=== PATIENT | female | born 1965 | race African-American/Black ===

== ENCOUNTER 2017-07-31 21:04 | Emergency (ER) | payer MEDICAID, OTHER ==
[~2017-07-31] VITALS: Ht 165.1 cm; Wt 65.0 kg
[~2017-07-31 21:04] MED LIST: ALBU18HF2 IH; FAMO40OR2 PO; MOME13HF2 INH
[2017-08-01 01:08] LABS: CLARITY URINE CLOUDY (CLEAR); COLOR URINE YELLOW (YELLOW); KETONES URINE TRACE (NEGATIVE); LEUKOCYTE ESTERASE URINE NEGATIVE (NEGATIVE); NITRITE URINE NEGATIVE (NEGATIVE); OCCULT BLOOD URINE NEGATIVE (NEGATIVE); PROTEIN URINE 1+ (NEGATIVE)
[2017-08-01] MEDS ORDERED: ACETAMINOPHEN 325MG TABLET PO ONE (01:15)
[2017-08-01 01:31] LABS: EOSINOPHILS % 4.8 % (0.0-5.0); HEMATOCRIT. 37.2 % (36.0-48.0); HEMOGLOBIN. 12.4 g/dL (12.0-16.0); LYMPHOCYTES % 47.4 % (20.0-50.0); MEAN CORPUSCULAR HEMOGLOBIN 28.1 pg (28.0-32.0); MEAN CORPUSCULAR VOLUME 84.6 fL (81.0-99.0); MEAN PLATELET VOLUME 8.6 fl (7.4-10.4); NEUTROPHILS % 37.8 % (40.0-76.0); PLATELET 243 x1000/uL (130-400); RED CELL DISTRIBUTION WIDTH 13.4 % (11.6-14.6)
[2017-08-01 01:37] LABS: CHLORIDE 109 mEq/L (98-107)
[2017-08-01 02:57] VITALS: BP 138/77
== END 2017-08-01 05:04 | disposition home or self-care (01) ==
LOC: ER 22:17
DX: R30.0 Dysuria (principal); R35.0 Frequency of micturition; R10.2 Pelvic and perineal pain; I11.0 Hypertensive heart disease with heart failure; I50.9 Heart failure, unspecified; J45.909 Unspecified asthma, uncomplicated; Z90.710 Acquired absence of both cervix and uterus
CPT/HCPCS: 36415; 76830; 76856; 80048; 81003; 81025; 83690; 85025; 87210; 99285; Z7610

== ENCOUNTER 2017-10-05 18:33 | Emergency (ER) | payer SELFPAY ==
[~2017-10-05] VITALS: Ht 167.6 cm; Wt 67.0 kg
[2017-10-05 22:02] LABS: BASOPHILS % 0.6 % (0.0-2.0); EOSINOPHILS % 0.1 % (0.0-5.0); HEMATOCRIT. 39.4 % (36.0-48.0); HEMOGLOBIN. 13.4 g/dL (12.0-16.0); LYMPHOCYTES % 12.7 % (20.0-50.0); MONOCYTES % 0.8 % (2.0-8.0); NEUTROPHILS % 85.8 % (40.0-76.0); PLATELET 291 x1000/uL (130-400); RED BLOOD CELL COUNT 4.64 mill/uL (4.2-5.4); RED CELL DISTRIBUTION WIDTH 13.3 % (11.6-14.6)
[2017-10-05 22:06] LABS: CHLORIDE 107 mEq/L (98-107)
[2017-10-05 22:07] LABS: PROTHROMBIN TIME 10.7 sec (9.4-11.6)
[2017-10-06 06:15] VITALS: BP 125/85
== END 2017-10-06 06:35 | disposition home or self-care (01) ==
LOC: ER 21:13
DX: I11.0 Hypertensive heart disease with heart failure (principal); I50.9 Heart failure, unspecified; R20.2 Paresthesia of skin; J45.909 Unspecified asthma, uncomplicated; Z90.710 Acquired absence of both cervix and uterus
CPT/HCPCS: 36415; 70450; 80053; 85025; 85610; 93005; 99285

== ENCOUNTER 2018-10-05 21:46 | Emergency (ER) | payer MEDICAID, OTHER ==
[~2018-10-05] VITALS: Ht 167.6 cm; Wt 68.0 kg
[2018-10-05] MEDS: KETOROLAC 30MG/ML VIAL IV STA (23:24)
[2018-10-05 23:33] LABS: EOSINOPHILS % 11.7 % (0.0-5.0); HEMATOCRIT. 36.4 % (36.0-48.0); HEMOGLOBIN. 12.5 g/dL (12.0-16.0); LYMPHOCYTES % 47.2 % (20.0-50.0); MEAN CORPUSCULAR HEMOGLOBIN 29.8 pg (28.0-32.0); MEAN CORPUSCULAR VOLUME 87.1 fL (81.0-99.0); MEAN PLATELET VOLUME 8.9 fl (7.4-10.4); MONOCYTES % 6.9 % (2.0-8.0); NEUTROPHILS % 33.2 % (40.0-76.0); PLATELET 268 x1000/uL (130-400); RED BLOOD CELL COUNT 4.18 mill/uL (4.2-5.4); RED CELL DISTRIBUTION WIDTH 13.7 % (11.6-14.6)
[2018-10-06 00:07] LABS: CHLORIDE 108 mEq/L (98-107)
[2018-10-06 04:21] VITALS: BP 150/84
== END 2018-10-06 04:21 | disposition home or self-care (01) ==
LOC: ER 21:46
DX: R07.89 Other chest pain (principal); J45.909 Unspecified asthma, uncomplicated; I11.0 Hypertensive heart disease with heart failure; I50.9 Heart failure, unspecified; Z90.710 Acquired absence of both cervix and uterus; Z79.899 Other long term (current) drug therapy
CPT/HCPCS: 36415; 71045; 80053; 83690; 84484; 85025; 93005; 96374; 99284; J1885; Z7610

== ENCOUNTER 2019-04-18 19:31 | Emergency (ER) | payer OTHER ==
[~2019-04-18] VITALS: Ht 167.6 cm; Wt 68.0 kg
[2019-04-18] MEDS ORDERED: ASPIRIN 81MG TABLET PO ONE (22:15)
[2019-04-18] MEDS: NITROGLYCERIN 0.4MG TABLET SL SL PRN ×2 (22:32→22:39)
[2019-04-18 23:30] LABS: BASOPHILS % 0.8 % (0.0-2.0); EOSINOPHILS % 9.8 % (0.0-5.0); HEMATOCRIT. 35.2 % (36.0-48.0); HEMOGLOBIN. 11.7 g/dL (12.0-16.0); LYMPHOCYTES % 41.2 % (20.0-50.0); MEAN CORPUSCULAR HEMOGLOBIN 28.9 pg (28.0-32.0); MEAN CORPUSCULAR VOLUME 86.8 fL (81.0-99.0); MEAN PLATELET VOLUME 8.5 fl (7.4-10.4); MONOCYTES % 8.8 % (2.0-8.0); NEUTROPHILS % 39.4 % (40.0-76.0); PLATELET 250 x1000/uL (130-400); RED BLOOD CELL COUNT 4.06 mill/uL (4.2-5.4); RED CELL DISTRIBUTION WIDTH 13.5 % (11.6-14.6)
[2019-04-18 23:35] LABS: CHLORIDE 113 mEq/L (98-107)
[2019-04-19 00:15] VITALS: BP 142/88
== END 2019-04-19 01:10 | disposition home or self-care (01) ==
LOC: ER 19:31
DX: R07.89 Other chest pain (principal); I11.0 Hypertensive heart disease with heart failure; I50.9 Heart failure, unspecified; J45.909 Unspecified asthma, uncomplicated; Z90.711 Acquired absence of uterus with remaining cervical stump
CPT/HCPCS: 36415; 71045; 80053; 83880; 84484; 85025; 93005; 99284; Z7610

== ENCOUNTER 2020-08-07 01:19 | Emergency (ER) | payer OTHER ==
[~2020-08-07] VITALS: Ht 162.6 cm; Wt 64.0 kg
[2020-08-07] MEDS ORDERED: LOSARTAN POTASSIUM 50 MG TABLET PO ONE (02:00)
[2020-08-07] MEDS ORDERED: ACETAMINOPHEN 325MG TABLET PO ONE (02:00)
[2020-08-07 02:41] LABS: EOSINOPHILS % 10.1 % (0.0-5.0); HEMATOCRIT. 36.5 % (36.0-48.0); HEMOGLOBIN. 12.2 g/dL (12.0-16.0); LYMPHOCYTES % 44.4 % (20.0-50.0); MEAN CORPUSCULAR VOLUME 86.5 fL (81.0-99.0); MEAN PLATELET VOLUME 9.2 fl (7.4-10.4); MONOCYTES % 8.3 % (2.0-8.0); NEUTROPHILS % 36.2 % (40.0-76.0); PLATELET 247 x1000/uL (130-400); RED BLOOD CELL COUNT 4.21 mill/uL (4.2-5.4); RED CELL DISTRIBUTION WIDTH 13.3 % (11.6-14.6)
[2020-08-07 02:43] LABS: CHLORIDE 108 mEq/L (98-107)
[2020-08-07 04:00] VITALS: BP 140/84
== END 2020-08-07 05:37 | disposition home or self-care (01) ==
LOC: ER 01:19
DX: I10 Essential (primary) hypertension (principal); J45.909 Unspecified asthma, uncomplicated; Z79.899 Other long term (current) drug therapy
CPT/HCPCS: 36415; 71045; 80053; 84484; 85025; 93005; 99285

== ENCOUNTER 2020-11-12 23:33 | Emergency (ER) | payer OTHER ==
[~2020-11-12] VITALS: Ht 165.1 cm; Wt 72.0 kg
[2020-11-13] MEDS ORDERED: DIPHENHYDRAMINE 50MG/ML VIAL IV ONE (00:45)
[2020-11-13] MEDS ORDERED: MECLIZINE 25MG TABLET PO ONE (00:45)
[2020-11-13] MEDS ORDERED: METOCLOPRAMIDE HCL 10MG/2ML VIAL IV ONE (00:45)
[2020-11-13 01:09] LABS: EOSINOPHILS % 6.8 % (0.0-5.0); HEMATOCRIT. 36.6 % (36.0-48.0); HEMOGLOBIN. 12.5 g/dL (12.0-16.0); LYMPHOCYTES % 45.9 % (20.0-50.0); MEAN CORPUSCULAR HEMOGLOBIN 29.7 pg (28.0-32.0); MEAN CORPUSCULAR VOLUME 86.7 fL (81.0-99.0); MEAN PLATELET VOLUME 8.4 fl (7.4-10.4); MONOCYTES % 7.2 % (2.0-8.0); NEUTROPHILS % 39.1 % (40.0-76.0); PLATELET 305 x1000/uL (130-400); RED BLOOD CELL COUNT 4.21 mill/uL (4.2-5.4); RED CELL DISTRIBUTION WIDTH 12.7 % (11.6-14.6)
[2020-11-13 01:13] LABS: CHLORIDE 108 mEq/L (98-107)
[2020-11-13 01:18] LABS: ETHANOL BLOOD < 10 mg/dL
[2020-11-13 01:24] LABS: HCG SCREEN NEGATIVE
[2020-11-13] MEDS ORDERED: MECL-159 MT (01:50)
[2020-11-13] MEDS ORDERED: IOHEXOL-350 100 ML BOTTLE ONE (02:30)
[2020-11-13 03:33] VITALS: BP 158/84
== END 2020-11-13 03:33 | disposition home or self-care (01) ==
LOC: ER 23:33
DX: R07.89 Other chest pain (principal); R42 Dizziness and giddiness; I10 Essential (primary) hypertension; I42.9 Cardiomyopathy, unspecified; J45.909 Unspecified asthma, uncomplicated; Z90.710 Acquired absence of both cervix and uterus
CPT/HCPCS: 36415; 70450; 70496; 71045; 80053; 80320; 83880; 84484; 84703; 85025; 93005; 99285; J1200; J2765; J8597; Q9967; G0480

== ENCOUNTER 2024-06-24 07:41 | Emergency (ER) | payer OTHER ==
[~2024-06-24] VITALS: Ht 167.6 cm; Wt 63.8 kg
[~2024-06-24 07:41] MED LIST changes: +MECL-299 MT; +MOME13HF12 INH; -MOME13HF2 INH
[2024-06-24 07:46] VITALS: O2SAT 100
[2024-06-24 07:50] VITALS: BP 160/95; PULSE 73; RESP 14; TEMP 97.6; O2SAT 100
[2024-06-24 08:39] LABS: CHLORIDE 108 mEq/L (98-107); SODIUM 139 mEq/L (136-145)
[2024-06-24 08:40] LABS: CALCIUM 9.2 mg/dL (8.7-10.4); CARBON DIOXIDE 22 mEq/L (21-32)
[2024-06-24 08:45] LABS: BASOPHILS % 0.8 % (0.0-2.0); DIFFERENTIAL COMMENT 0; EOSINOPHILS % 5.9 % (0.0-5.0); GLUCOSE 132 mg/dL (70-105); HEMATOCRIT. 35.9 % (36.0-48.0); LYMPHOCYTES % 23.9 % (20.0-50.0); MEAN CORPUSCULAR HEMOGLOBIN 28.9 pg (28.0-32.0); MEAN CORPUSCULAR HGB CONC 33.5 g/dL (31.0-37.0); MEAN CORPUSCULAR VOLUME 86.1 fL (81.0-99.0); MEAN PLATELET VOLUME 8.3 fl (7.4-10.4); MONOCYTES % 6.4 % (2.0-8.0); PLATELET 234 x1000/uL (130-400); RED BLOOD CELL COUNT 4.17 mill/uL (4.2-5.4); RED CELL DISTRIBUTION WIDTH 14.2 % (11.6-14.6); TROPONIN I HIGH SENSITIVITY 5 ng/L (3.0-34); UREA NITROGEN BLOOD 14 mg/dL (9-23); WHITE BLOOD COUNT 5.3 x1000/uL (4.5-11.0)
== END 2024-06-24 10:12 | disposition home or self-care (01) ==
LOC: ER 07:41
DX: R42 Dizziness and giddiness (principal); E86.0 Dehydration; I10 Essential (primary) hypertension; J45.909 Unspecified asthma, uncomplicated; Z79.51 Long term (current) use of inhaled steroids; Z90.710 Acquired absence of both cervix and uterus
CPT/HCPCS: 36415; 80048; 84484; 85025; 93005; 99284